=== PATIENT | female | born 1950 | race Caucasian/White ===

== ENCOUNTER 2017-03-14 19:41 | Emergency (ER) | payer MEDICARE ==
[~2017-03-14] VITALS: Ht 121.9 cm; Wt 49.9 kg
--- NOTE | ~2017-03-14 | EKG ---
[place], [place] ELECTROCARDIOGRAM REPORT NAME: SHEREE CRUZ UNIT #: [id number] ROOM: DOCTOR: RUDDY EID MD BIRTHDATE: [birth year] DOS: 03/14/2017 TIME: 2015 hours in the evening. Normal sinus rhythm at rate 78. 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 Leftward axis. Abnormal electrocardiogram. RUDDY EID MD CM:EKGRPT:ELECTROCARDIOGRAM REPORT [id number] RUDDY EID MD
[~2017-03-14 19:41] MED LIST: ASPI-COR81 M1 PO; AUGMENTIN ES-6100 ML PO; CLARITIN10 MG PO; EXFORGE 10 MG-11 TAB PO; OMNICEF300 MG PO; PLAVIX75 MG PO; PROVENTIL0.09 MG/AC IH; SINGULAIR10 MG PO; TRAMADOL HCL50 MG PO
[2017-03-14 19:59] LABS: BASO # 0.1 10*3/uL (0.0-0.1); BASO % 1.2 % (0.0-1.0); EOS # 0.1 10*3/uL (0.0-0.4); HEMATOCRIT 49.6 % (37.0-47.0); HEMOGLOBIN 15.5 g/dl (12.0-16.0); LYMPH # 2.5 10*3/uL (1.3-4.4); LYMPH % 28.6 % (27.0-41.0); MEAN CELL VOLUME 87.8 fl (81.0-99.0); MEAN CORPUSCULAR HGB 27.4 pg (27.0-31.0); MEAN CORPUSCULAR HGB CONC 31.3 g/dl (33.0-37.0); MEAN PLATELET VOLUME 9.3 fl (9.6-12.3); MONO # 0.5 10*3/uL (0.1-1.0); MONO % 5.8 % (3.0-9.0); NEUT # 5.5 10*3/uL (2.3-7.9); NEUT % 63.1 % (47.0-73.0); PLATELET COUNT AUTOMATED 552 10*3/uL (130-400); RED BLOOD COUNT 5.65 10*6/uL (4.10-5.10); RED CELL DISTRI WIDTH 13.2 % (0-14.5); WHITE BLOOD COUNT 8.7 10*3/uL (4.8-10.8)
[2017-03-14 20:16] LABS: BUN 10 mg/dl (7-24); CARBON DIOXIDE 28 mmol/L (21-32); CHLORIDE 106 mmol/L (98-107); EST GLOM FILT AFRICAN AMERICAN > 60 ml/min; GLUCOSE 132 mg/dL (65-99); MAGNESIUM 2.3 mg/dL (1.5-2.1); POTASSIUM 3.5 mmol/L (3.5-5.1); SODIUM 145 mmol/L (136-145)
[2017-03-14 20:19] LABS: TROPONIN I 0.944 ng/ml (<0.045)
[2017-03-14] MEDS ORDERED: NEXIUM 24HR20 MG PO (21:11)
[2017-03-14] MEDS ORDERED: ARICEPT10 M1 PO (21:11)
[2017-03-14] MEDS ORDERED: VITAMIN D-32000 UNIT PO (21:13)
[2017-03-14] MEDS ORDERED: COREG6.25 MG PO (21:14)
[2017-03-14] MEDS ORDERED: NORVASC5 MG PO (21:15)
[2017-03-14] MEDS ORDERED: Transderm Nitr0.6 MG TD (22:20)
[2017-03-14] MEDS ORDERED: NICODERM C21 MG/24 H TD (22:20)
[2017-03-14 23:01] VITALS: BP 140/76
== END 2017-03-15 00:15 | disposition left against medical advice (07) ==
LOC: ED 19:41
PROVIDERS: Student in an Organized Health Care Education/Training Program
DX: I21.3 ST elevation (STEMI) myocardial infarction of unspecified site (principal); Z79.82 Long term (current) use of aspirin; Z79.899 Other long term (current) drug therapy

== ENCOUNTER → 2017-05-27 | Outpatient (CLI) | payer MEDICARE ==
[~2017-05-27] MED LIST changes: +ARICEPT10 M1 PO; +COREG6.25 MG PO; +NEXIUM 24HR20 MG PO; +NICODERM C21 MG/24 H TD; +NORVASC5 MG PO; +Transderm Nitr0.6 MG TD; +VITAMIN D-32000 UNIT PO
[2017-05-27 10:31] LABS: HEMATOCRIT 47.5 % (37.0-47.0); HEMOGLOBIN 14.8 g/dl (12.0-16.0); MEAN CELL VOLUME 89.8 fl (81.0-99.0); MEAN CORPUSCULAR HGB CONC 31.2 g/dl (33.0-37.0); MEAN PLATELET VOLUME 9.7 fl (9.6-12.3); RED BLOOD COUNT 5.29 10*6/uL (4.10-5.10); RED CELL DISTRI WIDTH 14.5 % (0-14.5); WHITE BLOOD COUNT 9.6 10*3/uL (4.8-10.8)
[2017-05-27 10:55] LABS: ALBUMIN 3.5 gm/dl (3.1-4.5); ALKALINE PHOSPHATASE 152 U/L (45-117); BILIRUBIN, TOTAL 0.5 mg/dl (0.2-1.0); BUN 14 mg/dl (7-24); CARBON DIOXIDE 29 mmol/L (21-32); CHLORIDE 107 mmol/L (98-107); CHOLESTEROL 214 mg/dL (<200); CPK 69 U/L (26-192); EST GLOM FILT AFRICAN AMERICAN > 60 ml/min; GLUCOSE 97 mg/dL (65-99); HDL CHOLESTEROL 42 mg/dl (40-60); LDL CHOLESTEROL 141 mg/dL (9-159); POTASSIUM 4.2 mmol/L (3.5-5.1); SGOT/AST 19 IU/L (3-35); SGPT/ALT 24 U/L (12-78); SODIUM 140 mmol/L (136-145); TOTAL PROTEIN 7.8 gm/dL (6.4-8.2); TRIGLYCERIDES 155 mg/dl (<150); VLDL CHOLESTEROL 31 mg/dL (6-40)
[2017-05-27 12:20] LABS: VITAMIN D, 25-HYDROXY 32.4 ng/mL (30-100)
== END | disposition home or self-care (01) ==
LOC: LAB 10:00
PROVIDERS: Family Medicine
DX: I10 Essential (primary) hypertension (principal); E78.00 Pure hypercholesterolemia, unspecified; F41.1 Generalized anxiety disorder; I63.9 Cerebral infarction, unspecified; E55.9 Vitamin D deficiency, unspecified

== ENCOUNTER → 2017-06-08 | Outpatient (CLI) | payer MEDICARE | END | disposition home or self-care (01) | LOC: RAD 09:44 | DX: M54.9 Dorsalgia, unspecified (principal) ==

== ENCOUNTER → 2019-08-02 | Outpatient (CLI) | payer MEDICARE ==
[~2019-08-02] MED LIST changes: +COREG12.5 M1 PO; -COREG6.25 MG PO; +Clopidogrel75 MG PO
[2019-08-02 11:03] LABS: HEMATOCRIT 50.8 % (37.0-47.0); HEMOGLOBIN 15.9 g/dl (12.0-16.0); MEAN CELL VOLUME 91.7 fl (81.0-99.0); MEAN CORPUSCULAR HGB 28.7 pg (27.0-31.0); MEAN CORPUSCULAR HGB CONC 31.3 g/dl (33.0-37.0); MEAN PLATELET VOLUME 10.1 fl (9.6-12.3); RED BLOOD COUNT 5.54 10*6/uL (4.10-5.10); RED CELL DISTRI WIDTH 13.1 % (0-14.5); WHITE BLOOD COUNT 9.4 10*3/uL (4.8-10.8)
[2019-08-02 11:32] LABS: ALBUMIN 4.1 gm/dl (3.1-4.5); ALKALINE PHOSPHATASE 165 U/L (45-117); BUN 16 mg/dl (7-24); CHLORIDE 104 mmol/L (98-107); CHOLESTEROL 200 mg/dL (<200); CREATININE 0.87 mg/dL (0.55-1.02); HDL CHOLESTEROL 39 mg/dl (40-60); LDL CHOLESTEROL 122 mg/dL (9-159); POTASSIUM 4.6 mmol/L (3.5-5.1); SGOT/AST 15 IU/L (3-35); SGPT/ALT 21 U/L (12-78); SODIUM 141 mmol/L (136-145); TOTAL PROTEIN 8.1 gm/dL (6.4-8.2); TRIGLYCERIDES 193 mg/dl (<150); VLDL CHOLESTEROL 39 mg/dL (6-40)
== END | disposition home or self-care (01) ==
LOC: LAB 10:29
PROVIDERS: Nurse Practitioner Family
DX: I10 Essential (primary) hypertension (principal); I25.10 Atherosclerotic heart disease of native coronary artery without angina pectoris; E55.9 Vitamin D deficiency, unspecified; J44.9 Chronic obstructive pulmonary disease, unspecified

== ENCOUNTER 2019-10-05 14:13 | Emergency (ER) | payer MEDICARE ==
[~2019-10-05] VITALS: Ht 149.8 cm; Wt 48.1 kg
[2019-10-05 14:53] LABS: BASO # 0.1 10*3/uL (0.0-0.1); BASO % 1.1 % (0.0-1.0); EOS # 0.1 10*3/uL (0.0-0.4); EOS % 1.3 % (1.0-4.0); HEMATOCRIT 50.8 % (37.0-47.0); HEMOGLOBIN 15.5 g/dl (12.0-16.0); LYMPH # 2.1 10*3/uL (1.3-4.4); LYMPH % 22.1 % (27.0-41.0); MEAN CELL VOLUME 88.8 fl (81.0-99.0); MEAN CORPUSCULAR HGB 27.1 pg (27.0-31.0); MEAN CORPUSCULAR HGB CONC 30.5 g/dl (33.0-37.0); MEAN PLATELET VOLUME 10.1 fl (9.6-12.3); MONO # 0.7 10*3/uL (0.1-1.0); MONO % 7.7 % (3.0-9.0); NEUT # 6.3 10*3/uL (2.3-7.9); NEUT % 67.6 % (47.0-73.0); PLATELET COUNT AUTOMATED 393 10*3/uL (130-400); RED BLOOD COUNT 5.72 10*6/uL (4.10-5.10); RED CELL DISTRI WIDTH 13.5 % (0-14.5); WHITE BLOOD COUNT 9.3 10*3/uL (4.8-10.8)
[2019-10-05 15:09] LABS: ALBUMIN 3.4 gm/dl (3.1-4.5); CREATININE 1.12 mg/dL (0.55-1.02); POTASSIUM 3.8 mmol/L (3.5-5.1); TOTAL PROTEIN 7.6 gm/dL (6.4-8.2)
[2019-10-05 16:20] VITALS: BP 152/95
== END 2019-10-05 17:26 | disposition home or self-care (01) ==
LOC: ED 14:13
PROVIDERS: Physician Assistant
DX: R19.7 Diarrhea, unspecified (principal); I10 Essential (primary) hypertension; J44.9 Chronic obstructive pulmonary disease, unspecified; K21.9 Gastro-esophageal reflux disease without esophagitis; Z88.1 Allergy status to other antibiotic agents; Z88.8 Allergy status to other drugs, medicaments and biological substances; Z79.899 Other long term (current) drug therapy; Z79.82 Long term (current) use of aspirin; Z86.73 Personal history of transient ischemic attack (TIA), and cerebral infarction without residual deficits; Z86.718 Personal history of other venous thrombosis and embolism; Z87.442 Personal history of urinary calculi

== ENCOUNTER → 2020-04-04 | Outpatient (CLI) | payer MEDICARE | END | disposition home or self-care (01) | LOC: RAD 12:40 | DX: M54.5 Low back pain (principal) ==

== ENCOUNTER → 2020-05-23 | Outpatient (CLI) | payer MEDICARE ==
[2020-05-23 12:19] LABS: HEMATOCRIT 49.3 % (37.0-47.0); MEAN CELL VOLUME 90.5 fl (81.0-99.0); MEAN CORPUSCULAR HGB 28.1 pg (27.0-31.0); MEAN PLATELET VOLUME 10.1 fl (9.6-12.3); RED BLOOD COUNT 5.45 10*6/uL (4.10-5.10); RED CELL DISTRI WIDTH 15.9 % (0-14.5)
[2020-05-23 12:47] LABS: ALBUMIN 3.8 gm/dl (3.1-4.5); CREATININE 1.23 mg/dL (0.55-1.02); TOTAL PROTEIN 8.1 gm/dL (6.4-8.2)
[2020-05-23 12:53] LABS: THYROID STIM HORMONE (HS) 1.72 uIU/ml (0.358-4.75)
[2020-05-23 13:07] LABS: VITAMIN D, 25-HYDROXY 32.8 ng/mL (30-100)
== END | disposition home or self-care (01) ==
LOC: LAB 11:54
PROVIDERS: Family Medicine
DX: E78.00 Pure hypercholesterolemia, unspecified (principal); E55.9 Vitamin D deficiency, unspecified; K21.9 Gastro-esophageal reflux disease without esophagitis; R53.83 Other fatigue

== ENCOUNTER → 2020-07-30 | Outpatient (CLI) | payer MEDICARE | END | disposition home or self-care (01) | LOC: RAD 16:08 | PROVIDERS: ATTEND Nurse Practitioner Family | DX: R06.2 Wheezing (principal); M54.5 Low back pain ==

== ENCOUNTER 2020-08-20 18:25 | Emergency (ER) | payer MEDICARE ==
[2020-08-20 19:29] LABS: BASO # 0.1 10*3/uL (0.0-0.1); BASO % 1.1 % (0.0-1.0); EOS % 0.4 % (1.0-4.0); HEMATOCRIT 47.2 % (37.0-47.0); LYMPH # 1.7 10*3/uL (1.3-4.4); LYMPH % 18.4 % (27.0-41.0); MEAN CELL VOLUME 92.7 fl (81.0-99.0); MEAN CORPUSCULAR HGB 28.7 pg (27.0-31.0); MEAN CORPUSCULAR HGB CONC 30.9 g/dl (33.0-37.0); MEAN PLATELET VOLUME 9.7 fl (9.6-12.3); MONO # 0.5 10*3/uL (0.1-1.0); NEUT # 6.9 10*3/uL (2.3-7.9); NEUT % 74.9 % (47.0-73.0); PLATELET COUNT AUTOMATED 416 10*3/uL (130-400); RED BLOOD COUNT 5.09 10*6/uL (4.10-5.10); RED CELL DISTRI WIDTH 13.7 % (0-14.5); WHITE BLOOD COUNT 9.2 10*3/uL (4.8-10.8)
[2020-08-20 19:41] VITALS: BP 136/79
[2020-08-20 19:41] LABS: LIPASE 122 U/L (73-393)
[2020-08-20 19:47] LABS: ALKALINE PHOSPHATASE 114 U/L (45-117); BUN 28 mg/dl (7-24); CHLORIDE 112 mmol/L (98-107); CREATININE 1.09 mg/dL (0.55-1.02); POTASSIUM 4.2 mmol/L (3.5-5.1); SGOT/AST 24 IU/L (3-35); SGPT/ALT 26 U/L (12-78); SODIUM 143 mmol/L (136-145); TOTAL PROTEIN 7.7 gm/dL (6.4-8.2)
[2020-08-20 19:51] LABS: TROPONIN I < 0.015 ng/ml (<0.045)
== END 2020-08-20 21:05 | disposition home or self-care (01) ==
LOC: ED 18:25
PROVIDERS: Emergency Medicine
DX: I10 Essential (primary) hypertension (principal); R79.1 Abnormal coagulation profile; Z79.899 Other long term (current) drug therapy; Z79.82 Long term (current) use of aspirin; Z88.1 Allergy status to other antibiotic agents; Z88.8 Allergy status to other drugs, medicaments and biological substances

== ENCOUNTER 2020-09-19 09:35 | Emergency (ER) | payer MEDICARE ==
[~2020-09-19] VITALS: Wt 90.7 kg
[2020-09-19 09:35] VITALS: BP 177/119
[2020-09-19 10:25] LABS: BASO # 0.1 10*3/uL (0.0-0.1); BASO % 0.9 % (0.0-1.0); EOS # 0.1 10*3/uL (0.0-0.4); EOS % 0.9 % (1.0-4.0); HEMATOCRIT 50.6 % (37.0-47.0); LYMPH # 1.9 10*3/uL (1.3-4.4); LYMPH % 21.9 % (27.0-41.0); MEAN CELL VOLUME 94.2 fl (81.0-99.0); MEAN CORPUSCULAR HGB 28.7 pg (27.0-31.0); MEAN CORPUSCULAR HGB CONC 30.4 g/dl (33.0-37.0); MEAN PLATELET VOLUME 9.7 fl (9.6-12.3); MONO # 0.5 10*3/uL (0.1-1.0); MONO % 5.8 % (3.0-9.0); NEUT # 6.1 10*3/uL (2.3-7.9); NEUT % 70.2 % (47.0-73.0); PLATELET COUNT AUTOMATED 431 10*3/uL (130-400); RED BLOOD COUNT 5.37 10*6/uL (4.10-5.10); RED CELL DISTRI WIDTH 13.2 % (0-14.5); WHITE BLOOD COUNT 8.7 10*3/uL (4.8-10.8)
[2020-09-19 10:36] LABS: INTERNATIONAL NORM RATIO 0.9 (2.0-3.5)
[2020-09-19 10:42] LABS: ALBUMIN 3.9 gm/dl (3.1-4.5); ALKALINE PHOSPHATASE 156 U/L (45-117); BUN 11 mg/dl (7-24); CHLORIDE 110 mmol/L (98-107); CREATININE 0.91 mg/dL (0.55-1.02); POTASSIUM 4.2 mmol/L (3.5-5.1); SGOT/AST 23 IU/L (3-35); SGPT/ALT 23 U/L (12-78); SODIUM 141 mmol/L (136-145); TOTAL PROTEIN 8.4 gm/dL (6.4-8.2)
[2020-09-19 10:45] LABS: TROPONIN I < 0.015 ng/ml (<0.045)
[2020-09-19 12:38] LABS: BILIRUBIN Negative (Negative); BLOOD Negative (Negative); CLARITY Clear (Clear); COLOR Yellow (Yellow); GLUCOSE Negative (Negative); KETONE Negative (Negative); LEUKO ESTERASE 2+ (Negative); NITRITE Negative (Negative); PH 5.5 (4.5-8.0); SPECIFIC GRAVITY 1.015 (1.001-1.030); UROBILINOGEN 0.2 E.U./dl (0.0-1.0)
[2020-09-19 12:56] LABS: BACTERIA 1+; WBC 16-20 wbc/hpf (0-5)
[2020-09-19] MEDS ORDERED: CIPRO500 MG PO (13:26)
== END 2020-09-19 13:35 | disposition home or self-care (01) ==
LOC: ED 09:35
PROVIDERS: Physician Assistant
DX: N39.0 Urinary tract infection, site not specified (principal)

== ENCOUNTER → 2020-10-03 | Outpatient (CLI) | payer MEDICARE ==
[~2020-10-03] MED LIST changes: +CIPRO500 MG PO
== END | disposition home or self-care (01) ==
LOC: RAD 13:06
PROVIDERS: ATTEND Family Medicine
DX: J44.9 Chronic obstructive pulmonary disease, unspecified (principal); I63.9 Cerebral infarction, unspecified; Z87.891 Personal history of nicotine dependence

== ENCOUNTER → 2021-01-01 | Outpatient (CLI) | payer MEDICARE | END | disposition home or self-care (01) | LOC: US 13:30 | PROVIDERS: ATTEND Family Medicine | DX: N32.89 Other specified disorders of bladder (principal); M54.5 Low back pain; Z90.722 Acquired absence of ovaries, bilateral; Z90.710 Acquired absence of both cervix and uterus; Z12.31 Encounter for screening mammogram for malignant neoplasm of breast ==

== ENCOUNTER → 2021-01-04 | Outpatient (CLI) | payer MEDICARE ==
[2021-01-04 13:25] LABS: HEMATOCRIT 43.7 % (37.0-47.0); MEAN CELL VOLUME 98.6 fl (81.0-99.0); MEAN CORPUSCULAR HGB 29.8 pg (27.0-31.0); MEAN CORPUSCULAR HGB CONC 30.2 g/dl (33.0-37.0); MEAN PLATELET VOLUME 10.9 fl (9.6-12.3); RED BLOOD COUNT 4.43 10*6/uL (4.10-5.10); RED CELL DISTRI WIDTH 18.9 % (0-14.5)
[2021-01-04 13:40] LABS: ALBUMIN 3.3 gm/dl (3.1-4.5); ALKALINE PHOSPHATASE 105 U/L (45-117); BUN 18 mg/dl (7-24); CHLORIDE 115 mmol/L (98-107); CHOLESTEROL 119 mg/dL (<200); CREATININE 0.95 mg/dL (0.55-1.02); HDL CHOLESTEROL 39 mg/dl (40-60); LDL CHOLESTEROL 49 mg/dL (9-159); POTASSIUM 3.6 mmol/L (3.5-5.1); SGOT/AST 12 IU/L (3-35); SGPT/ALT 15 U/L (12-78); SODIUM 146 mmol/L (136-145); TRIGLYCERIDES 156 mg/dl (<150); VLDL CHOLESTEROL 31 mg/dL (6-40)
== END | disposition home or self-care (01) ==
LOC: LAB 12:37
PROVIDERS: ATTEND Nurse Practitioner Family
DX: I10 Essential (primary) hypertension (principal); R77.9 Abnormality of plasma protein, unspecified

== ENCOUNTER → 2021-01-08 | Outpatient (CLI) | payer MEDICARE | END | disposition home or self-care (01) | LOC: CT 14:00 → LAB 14:03 | PROVIDERS: ATTEND Nurse Practitioner Family | DX: R10.9 Unspecified abdominal pain (principal); N32.9 Bladder disorder, unspecified; Z90.49 Acquired absence of other specified parts of digestive tract; Z90.722 Acquired absence of ovaries, bilateral; Z90.710 Acquired absence of both cervix and uterus ==

== ENCOUNTER 2021-06-05 17:43 | Inpatient (IN) | payer MEDICARE ==
[~2021-06-05] VITALS: Ht 142.2 cm; Wt 33.2 kg
[2021-06-05 18:00] VITALS: BP 138/63
[2021-06-05 18:11] LABS: BASO # 0.1 10*3/uL (0.0-0.1); BASO % 1.6 % (0.0-1.0); EOS # 0.1 10*3/uL (0.0-0.4); EOS % 1.3 % (1.0-4.0); HEMATOCRIT 41.6 % (37.0-47.0); LYMPH # 2.7 10*3/uL (1.3-4.4); LYMPH % 30.4 % (27.0-41.0); MEAN CORPUSCULAR HGB 29.2 pg (27.0-31.0); MEAN CORPUSCULAR HGB CONC 30.8 g/dl (33.0-37.0); MEAN PLATELET VOLUME 9.9 fl (9.6-12.3); MONO # 0.5 10*3/uL (0.1-1.0); MONO % 5.2 % (3.0-9.0); NEUT # 5.4 10*3/uL (2.3-7.9); NEUT % 60.4 % (47.0-73.0); PLATELET COUNT AUTOMATED 425 10*3/uL (130-400); RED BLOOD COUNT 4.38 10*6/uL (4.10-5.10)
[2021-06-05 18:27] LABS: ALBUMIN 3.4 gm/dl (3.1-4.5); ALKALINE PHOSPHATASE 119 U/L (45-117); BUN 34 mg/dl (7-24); CHLORIDE 112 mmol/L (98-107); CREATININE 1.02 mg/dL (0.55-1.02); POTASSIUM 3.7 mmol/L (3.5-5.1); SGOT/AST 25 IU/L (3-35); SGPT/ALT 21 U/L (12-78); SODIUM 140 mmol/L (136-145); TOTAL PROTEIN 7.1 gm/dL (6.4-8.2)
[2021-06-05 19:34] VITALS: BP 132/64
[2021-06-05 19:42] LABS: BILIRUBIN Negative (Negative); BLOOD Negative (Negative); CLARITY Clear (Clear); COLOR Yellow (Yellow); GLUCOSE Negative (Negative); KETONE Trace (Negative); LEUKO ESTERASE Negative (Negative); NITRITE Negative (Negative); UROBILINOGEN 0.2 E.U./dl (0.0-1.0)
[2021-06-05 19:53] LABS: BACTERIA TRACE; WBC 0-2 wbc/hpf (0-5)
[2021-06-05 20:43] LABS: URINE AMPHETAMINES < 1000 (1000ng/ml); URINE BARBITURATES < 200 (200ng/ml); URINE BENZODIAZEPINES < 200 (200ng/ml); URINE CANNABINOIDS (THC) < 50 (50ng/ml); URINE COCAINE < 300 (300ng/ml); URINE METHADONE < 300 (300ng/ml); URINE OPIATES < 300 (300ng/ml)
[2021-06-05 20:46] LABS: URINE PHENCYCLIDINE < 25 (25ng/ml)
[2021-06-05 22:13] VITALS: BP 119/60
[2021-06-05 23:55] VITALS: BP 149/50
[2021-06-06 08:00] VITALS: BP 161/73
[2021-06-06] MEDS ORDERED: COREG25 MG PO (09:18)
[2021-06-06] MEDS ORDERED: GABAPENTIN400 MG PO (09:20)
[2021-06-06] MEDS ORDERED: REMERON15 M2 PO (09:20)
[2021-06-06 12:10] VITALS: BP 101/47
[2021-06-06 13:23] VITALS: BP 119/59
[2021-06-06 16:00] VITALS: BP 107/57
[2021-06-06 20:00] VITALS: BP 149/72
[2021-06-07] VITALS: BP 123/44
[2021-06-07 04:00] VITALS: BP 164/89
[2021-06-07 08:00] VITALS: BP 159/50
[2021-06-07 12:00] VITALS: BP 128/41
[2021-06-07 13:04] LABS: BASO # 0.1 10*3/uL (0.0-0.1); EOS # 0.1 10*3/uL (0.0-0.4); EOS % 1.4 % (1.0-4.0); LYMPH # 2.3 10*3/uL (1.3-4.4); LYMPH % 29.6 % (27.0-41.0); MEAN CELL VOLUME 97.9 fl (81.0-99.0); MEAN CORPUSCULAR HGB 28.9 pg (27.0-31.0); MEAN CORPUSCULAR HGB CONC 29.5 g/dl (33.0-37.0); MEAN PLATELET VOLUME 9.7 fl (9.6-12.3); MONO # 0.8 10*3/uL (0.1-1.0); MONO % 9.5 % (3.0-9.0); NEUT # 4.6 10*3/uL (2.3-7.9); NEUT % 58.1 % (47.0-73.0); PLATELET COUNT AUTOMATED 346 10*3/uL (130-400); RED BLOOD COUNT 3.88 10*6/uL (4.10-5.10); RED CELL DISTRI WIDTH 14.7 % (0-14.5); WHITE BLOOD COUNT 7.9 10*3/uL (4.8-10.8)
[2021-06-07 13:18] LABS: ACT PARTIAL THROMBO TIME 25.9 SECONDS (20.0-32.1)
[2021-06-07 16:00] VITALS: BP 124/52
[2021-06-07 20:00] VITALS: BP 104/58
[2021-06-07 20:21] LABS: ALBUMIN 3.1 gm/dl (3.1-4.5); ALKALINE PHOSPHATASE 110 U/L (45-117); BUN 26 mg/dl (7-24); CHLORIDE 110 mmol/L (98-107); CREATININE 0.96 mg/dL (0.55-1.02); POTASSIUM 3.5 mmol/L (3.5-5.1); SGOT/AST 23 IU/L (3-35); SGPT/ALT 22 U/L (12-78); SODIUM 139 mmol/L (136-145); TOTAL PROTEIN 6.3 gm/dL (6.4-8.2)
[2021-06-08] VITALS: BP 161/80
[2021-06-08 04:00] VITALS: BP 150/70
[2021-06-08 08:00] VITALS: BP 150/80
[2021-06-08 16:00] VITALS: BP 141/64
[2021-06-08 20:00] VITALS: BP 140/70
[2021-06-09] VITALS: BP 140/80
[2021-06-09 04:00] VITALS: BP 150/80
[2021-06-09 08:00] VITALS: BP 160/80
[2021-06-09 12:00] VITALS: BP 147/48
[2021-06-09 16:00] VITALS: BP 114/94
[2021-06-09 20:00] VITALS: BP 143/53
[2021-06-10] VITALS: BP 132/66
[2021-06-10 06:38] LABS: BASO # 0.1 10*3/uL (0.0-0.1); BASO % 0.7 % (0.0-1.0); EOS # 0.2 10*3/uL (0.0-0.4); EOS % 2.1 % (1.0-4.0); HEMATOCRIT 39.2 % (37.0-47.0); LYMPH % 26.3 % (27.0-41.0); MEAN CELL VOLUME 96.8 fl (81.0-99.0); MEAN CORPUSCULAR HGB 28.6 pg (27.0-31.0); MEAN CORPUSCULAR HGB CONC 29.6 g/dl (33.0-37.0); MEAN PLATELET VOLUME 10.4 fl (9.6-12.3); MONO # 0.5 10*3/uL (0.1-1.0); NEUT # 4.8 10*3/uL (2.3-7.9); NEUT % 63.4 % (47.0-73.0); PLATELET COUNT AUTOMATED 388 10*3/uL (130-400); RED BLOOD COUNT 4.05 10*6/uL (4.10-5.10); RED CELL DISTRI WIDTH 14.1 % (0-14.5); WHITE BLOOD COUNT 7.5 10*3/uL (4.8-10.8)
[2021-06-10 08:00] VITALS: BP 175/72
[2021-06-10] MEDS ORDERED: ELIQUIS5 M1 PO (11:23)
== END 2021-06-10 18:00 | disposition home or self-care (01) | DRG 62 ==
LOC: ED 17:43 → ICCU 22:39 → EDHOLD 22:39 → 4E 22:53 → ICCU 06-06 13:22
PROVIDERS: Internal Medicine; Student in an Organized Health Care Education/Training Program; Surgery Vascular Surgery; ADMIT Internal Medicine; ATTEND Internal Medicine
DX: I63.232 Cerebral infarction due to unspecified occlusion or stenosis of left carotid arteries (principal); F33.1 Major depressive disorder, recurrent, moderate; E16.2 Hypoglycemia, unspecified; I63.231 Cerebral infarction due to unspecified occlusion or stenosis of right carotid arteries; J43.2 Centrilobular emphysema; K21.00 Gastro-esophageal reflux disease with esophagitis, without bleeding; I10 Essential (primary) hypertension; F02.80 Dementia in other diseases classified elsewhere, unspecified severity, without behavioral disturbance, psychotic disturbance, mood disturbance, and anxiety; G30.1 Alzheimer's disease with late onset; G83.24 Monoplegia of upper limb affecting left nondominant side; E78.2 Mixed hyperlipidemia; R26.2 Difficulty in walking, not elsewhere classified; Z20.822 Contact with and (suspected) exposure to COVID-19; G89.29 Other chronic pain; M54.5 Low back pain; Z87.11 Personal history of peptic ulcer disease; Z88.1 Allergy status to other antibiotic agents; Z88.8 Allergy status to other drugs, medicaments and biological substances; Z83.3 Family history of diabetes mellitus; Z79.899 Other long term (current) drug therapy; Z90.710 Acquired absence of both cervix and uterus

== ENCOUNTER 2021-08-26 15:01 | Emergency (ER) | payer MEDICARE ==
[~2021-08-26 15:01] MED LIST changes: +COREG25 MG PO; +ELIQUIS5 M1 PO; +GABAPENTIN400 MG PO; +REMERON15 M2 PO
== END 2021-08-26 18:15 | disposition left against medical advice (07) ==
LOC: ED 15:01
DX: M54.9 Dorsalgia, unspecified (principal); R63.0 Anorexia; Z53.21 Procedure and treatment not carried out due to patient leaving prior to being seen by health care provider

== ENCOUNTER 2021-08-26 19:56 | Emergency (ER) | payer MEDICARE ==
[~2021-08-26] VITALS: Wt 45.4 kg
[2021-08-26 20:00] VITALS: BP 143/90
[2021-08-29] MEDS ORDERED: HYDRALAZINE10 MG PO ×2 (12:20→12:25)
[2021-08-29] MEDS ORDERED: NORVASC5 MG PO ×3 (12:23→20:28)
[2021-08-29] MEDS ORDERED: APRESOLINE10 MG PO (20:28)
[2021-08-29] MEDS ORDERED: ARICEPT10 M1 PO (20:29)
[2021-08-29] MEDS ORDERED: REMERON15 M2 PO (20:29)
== END 2021-08-26 20:25 | disposition left against medical advice (07) ==
LOC: ED 19:56
DX: M54.9 Dorsalgia, unspecified (principal); Z53.21 Procedure and treatment not carried out due to patient leaving prior to being seen by health care provider

== ENCOUNTER 2021-09-02 17:52 | Emergency (ER) | payer MEDICARE ==
[~2021-09-02] VITALS: Ht 139.7 cm; Wt 40.8 kg
[~2021-09-02 17:52] MED LIST changes: +APRESOLINE10 MG PO; +ASPIRIN ADULT L81 M1 PO; +HYDRALAZINE HYD50 MG PO; +HYDRALAZINE10 MG PO; +LABETALOL HCL100 MG PO; +NAMENDA-5 PO; +NEXIUM 24HR20 M2 PO; +PLAVIX75 M1 PO
[2021-09-02 18:45] VITALS: BP 170/110
[2021-09-02 19:01] LABS: BASO # 0.1 10*3/uL (0.0-0.1); BASO % 1.2 % (0.0-1.0); EOS # 0.1 10*3/uL (0.0-0.4); EOS % 1.1 % (1.0-4.0); HEMATOCRIT 33.2 % (37.0-47.0); LYMPH % 22.9 % (27.0-41.0); MEAN CELL VOLUME 92.7 fl (81.0-99.0); MEAN CORPUSCULAR HGB 27.7 pg (27.0-31.0); MEAN CORPUSCULAR HGB CONC 29.8 g/dl (33.0-37.0); MEAN PLATELET VOLUME 9.4 fl (9.6-12.3); MONO # 0.9 10*3/uL (0.1-1.0); MONO % 10.5 % (3.0-9.0); NEUT # 5.7 10*3/uL (2.3-7.9); NEUT % 63.6 % (47.0-73.0); PLATELET COUNT AUTOMATED 633 10*3/uL (130-400); RED BLOOD COUNT 3.58 10*6/uL (4.10-5.10); RED CELL DISTRI WIDTH 16.1 % (0-14.5); WHITE BLOOD COUNT 8.9 10*3/uL (4.8-10.8)
[2021-09-02 19:13] LABS: ACT PARTIAL THROMBO TIME 26.3 SECONDS (20.0-32.1); INTERNATIONAL NORM RATIO 0.9 (2.0-3.5)
[2021-09-02 19:21] LABS: ALBUMIN 2.8 gm/dl (3.1-4.5); ALKALINE PHOSPHATASE 123 U/L (45-117); BUN 19 mg/dl (7-24); CHLORIDE 110 mmol/L (98-107); CREATININE 0.93 mg/dL (0.55-1.02); POTASSIUM 3.6 mmol/L (3.5-5.1); SGOT/AST 36 IU/L (3-35); SGPT/ALT 24 U/L (12-78); SODIUM 144 mmol/L (136-145); TOTAL PROTEIN 7.4 gm/dL (6.4-8.2); TROPONIN I < 0.015 ng/ml (<0.045)
== END 2021-09-02 21:24 | disposition left against medical advice (07) ==
LOC: ED 17:52
PROVIDERS: Emergency Medicine
DX: M54.6 Pain in thoracic spine (principal); Z86.16 Personal history of COVID-19; Z88.1 Allergy status to other antibiotic agents; Z79.899 Other long term (current) drug therapy; Z79.82 Long term (current) use of aspirin

== ENCOUNTER 2021-09-04 00:34 | Emergency (ER) | payer MEDICARE ==
[~2021-09-04] VITALS: Ht 162.5 cm; Wt 49.9 kg
[2021-09-04 00:36] VITALS: BP 112/49
[2021-09-04 00:59] LABS: BASO # 0.1 10*3/uL (0.0-0.1); BASO % 1.2 % (0.0-1.0); EOS # 0.1 10*3/uL (0.0-0.4); EOS % 1.1 % (1.0-4.0); HEMATOCRIT 31.3 % (37.0-47.0); LYMPH # 1.7 10*3/uL (1.3-4.4); LYMPH % 17.4 % (27.0-41.0); MEAN CORPUSCULAR HGB 27.3 pg (27.0-31.0); MEAN CORPUSCULAR HGB CONC 29.1 g/dl (33.0-37.0); MEAN PLATELET VOLUME 9.9 fl (9.6-12.3); MONO % 10.3 % (3.0-9.0); NEUT # 6.9 10*3/uL (2.3-7.9); NEUT % 69.1 % (47.0-73.0); PLATELET COUNT AUTOMATED 517 10*3/uL (130-400); RED BLOOD COUNT 3.33 10*6/uL (4.10-5.10); RED CELL DISTRI WIDTH 16.1 % (0-14.5)
[2021-09-04 01:18] LABS: ALBUMIN 2.5 gm/dl (3.1-4.5); ALKALINE PHOSPHATASE 114 U/L (45-117); BUN 19 mg/dl (7-24); CHLORIDE 111 mmol/L (98-107); POTASSIUM 4.2 mmol/L (3.5-5.1); SGOT/AST 30 IU/L (3-35); SGPT/ALT 22 U/L (12-78); SODIUM 141 mmol/L (136-145); TOTAL PROTEIN 6.8 gm/dL (6.4-8.2)
[2021-09-04 03:23] LABS: BILIRUBIN 2+ (Negative); BLOOD Negative (Negative); CLARITY Cloudy (Clear); COLOR Dark Yellow (Yellow); GLUCOSE Negative (Negative); KETONE Trace (Negative); LEUKO ESTERASE 1+ (Negative); NITRITE Negative (Negative); SPECIFIC GRAVITY >= 1.030 (1.001-1.030)
[2021-09-04 03:43] LABS: BACTERIA TRACE; HYALINE CAST 16-20
[2021-09-04] MEDS ORDERED: SEPTDS PO (03:52)
== END 2021-09-04 06:14 | disposition home or self-care (01) ==
LOC: ED 00:34
PROVIDERS: Internal Medicine
DX: N39.0 Urinary tract infection, site not specified (principal); E88.09 Other disorders of plasma-protein metabolism, not elsewhere classified; D64.9 Anemia, unspecified; Z88.1 Allergy status to other antibiotic agents; Z79.899 Other long term (current) drug therapy; Z79.82 Long term (current) use of aspirin

== ENCOUNTER 2021-10-23 14:11 | Inpatient (IN) | payer MEDICARE ==
[~2021-10-23] VITALS: Ht 127 cm; Wt 39.1 kg
[~2021-10-23 14:11] MED LIST changes: +SEPTDS PO
[2021-10-23 14:49] VITALS: BP 165/110
[2021-10-23 19:23] VITALS: BP 188/100
[2021-10-23 20:00] VITALS: BP 190/90
[2021-10-23 20:33] LABS: BASO # 0.1 10*3/uL (0.0-0.1); BASO % 0.9 % (0.0-1.0); EOS # 0.1 10*3/uL (0.0-0.4); EOS % 1.7 % (1.0-4.0); LYMPH # 1.3 10*3/uL (1.3-4.4); LYMPH % 15.6 % (27.0-41.0); MEAN CELL VOLUME 86.6 fl (81.0-99.0); MEAN CORPUSCULAR HGB 24.9 pg (27.0-31.0); MEAN CORPUSCULAR HGB CONC 28.8 g/dl (33.0-37.0); MONO # 0.7 10*3/uL (0.1-1.0); NEUT # 5.9 10*3/uL (2.3-7.9); NEUT % 72.6 % (47.0-73.0); PLATELET COUNT AUTOMATED 315 10*3/uL (130-400); RED BLOOD COUNT 4.85 10*6/uL (4.10-5.10); RED CELL DISTRI WIDTH 14.7 % (0-14.5); WHITE BLOOD COUNT 8.1 10*3/uL (4.8-10.8)
[2021-10-23 20:44] LABS: ACT PARTIAL THROMBO TIME 25.6 SECONDS (20.0-32.1)
[2021-10-23 20:51] LABS: ALBUMIN 3.4 gm/dl (3.1-4.5); CREATININE 1.13 mg/dL (0.55-1.02); POTASSIUM 4.2 mmol/L (3.5-5.1); TOTAL PROTEIN 7.7 gm/dL (6.4-8.2)
[2021-10-23 21:30] VITALS: BP 164/80
[2021-10-24 00:08] VITALS: BP 134/96
[2021-10-24 03:12] LABS: BILIRUBIN Negative (Negative); BLOOD Negative (Negative); CLARITY Clear (Clear); COLOR Yellow (Yellow); GLUCOSE Negative (Negative); KETONE Negative (Negative); LEUKO ESTERASE Negative (Negative); NITRITE Negative (Negative); UROBILINOGEN 0.2 E.U./dl (0.0-1.0)
[2021-10-24 03:36] LABS: WBC 0-2 wbc/hpf (0-5)
[2021-10-24 05:11] VITALS: BP 136/58
[2021-10-24 08:33] VITALS: BP 152/76
[2021-10-24 12:00] VITALS: BP 152/76
[2021-10-24 16:00] VITALS: BP 179/50
[2021-10-24 18:19] VITALS: BP 151/52
[2021-10-25 01:14] VITALS: BP 145/47
[2021-10-25 02:00] VITALS: BP 158/52
[2021-10-25 06:31] LABS: BASO # 0.1 10*3/uL (0.0-0.1); BASO % 0.7 % (0.0-1.0); EOS # 0.1 10*3/uL (0.0-0.4); EOS % 0.9 % (1.0-4.0); HEMATOCRIT 37.5 % (37.0-47.0); LYMPH # 0.8 10*3/uL (1.3-4.4); LYMPH % 8.7 % (27.0-41.0); MEAN CORPUSCULAR HGB 25.2 pg (27.0-31.0); MEAN CORPUSCULAR HGB CONC 29.6 g/dl (33.0-37.0); MEAN PLATELET VOLUME 10.1 fl (9.6-12.3); MONO # 0.4 10*3/uL (0.1-1.0); MONO % 4.5 % (3.0-9.0); NEUT # 7.6 10*3/uL (2.3-7.9); PLATELET COUNT AUTOMATED 309 10*3/uL (130-400); RED BLOOD COUNT 4.41 10*6/uL (4.10-5.10); RED CELL DISTRI WIDTH 14.9 % (0-14.5)
[2021-10-25 06:42] LABS: BUN 24 mg/dl (7-24); CHLORIDE 111 mmol/L (98-107); CREATININE 0.85 mg/dL (0.55-1.02); SODIUM 140 mmol/L (136-145)
[2021-10-25 08:00] VITALS: BP 152/60
[2021-10-25 12:00] VITALS: BP 142/60
[2021-10-25 20:00] VITALS: BP 122/62
[2021-10-26] VITALS: BP 99/56
[2021-10-26 08:00] VITALS: BP 125/83
[2021-10-26 12:00] VITALS: BP 156/50
[2021-10-26 16:00] VITALS: BP 140/80
[2021-10-27 00:49] VITALS: BP 136/78
[2021-10-27 08:00] VITALS: BP 151/50
[2021-10-27 12:00] VITALS: BP 162/54
[2021-10-27 16:00] VITALS: BP 130/52
[2021-10-27 20:00] VITALS: BP 81/48
[2021-10-28] VITALS: BP 83/48
[2021-10-28 04:00] VITALS: BP 170/70
[2021-10-28 08:00] VITALS: BP 164/68
[2021-10-28 12:00] VITALS: BP 134/94
[2021-10-28] MEDS ORDERED: DIVALPROEX SOD125 MG PO (12:00)
[2021-10-28] MEDS ORDERED: BUSPIRONE HCL10 MG PO (12:00)
== END 2021-10-28 16:26 | DRG 683 ==
LOC: ED 14:11 → EDHOLD 10-24 00:35 → 4E 10-24 00:35 → EDHOLD 10-24 03:48 → 4E 10-25 01:43
PROVIDERS: Physician Assistant; ADMIT Internal Medicine; ATTEND Internal Medicine
DX: N17.0 Acute kidney failure with tubular necrosis (principal); F02.81 Dementia in other diseases classified elsewhere, unspecified severity, with behavioral disturbance; F33.1 Major depressive disorder, recurrent, moderate; E78.2 Mixed hyperlipidemia; R62.7 Adult failure to thrive; G30.1 Alzheimer's disease with late onset; K21.00 Gastro-esophageal reflux disease with esophagitis, without bleeding; G89.29 Other chronic pain; M54.9 Dorsalgia, unspecified; Z20.822 Contact with and (suspected) exposure to COVID-19; J43.2 Centrilobular emphysema; I10 Essential (primary) hypertension; F41.1 Generalized anxiety disorder; N18.31 Chronic kidney disease, stage 3a; Z88.8 Allergy status to other drugs, medicaments and biological substances; Z86.73 Personal history of transient ischemic attack (TIA), and cerebral infarction without residual deficits; Z88.1 Allergy status to other antibiotic agents; Z90.710 Acquired absence of both cervix and uterus; Z68.24 Body mass index [BMI] 24.0-24.9, adult

== ENCOUNTER 2022-01-13 01:47 | Emergency (ER) | payer MEDICARE ==
[~2022-01-13] VITALS: Ht 154.9 cm; Wt 61.2 kg
[~2022-01-13 01:47] MED LIST changes: +BUSPIRONE HCL10 MG PO; +DIVALPROEX SOD125 MG PO
[2022-01-13 03:45] LABS: BASO # 0.1 10*3/uL (0.0-0.1); BASO % 0.7 % (0.0-1.0); EOS # 0.1 10*3/uL (0.0-0.4); EOS % 0.6 % (1.0-4.0); HEMATOCRIT 38.8 % (37.0-47.0); LYMPH # 1.1 10*3/uL (1.3-4.4); LYMPH % 11.3 % (27.0-41.0); MEAN CELL VOLUME 83.8 fl (81.0-99.0); MEAN CORPUSCULAR HGB 25.3 pg (27.0-31.0); MEAN CORPUSCULAR HGB CONC 30.2 g/dl (33.0-37.0); MEAN PLATELET VOLUME 9.5 fl (9.6-12.3); MONO # 0.3 10*3/uL (0.1-1.0); MONO % 3.1 % (3.0-9.0); NEUT # 7.9 10*3/uL (2.3-7.9); NEUT % 83.7 % (47.0-73.0); PLATELET COUNT AUTOMATED 298 10*3/uL (130-400); RED BLOOD COUNT 4.63 10*6/uL (4.10-5.10); RED CELL DISTRI WIDTH 23.6 % (0-14.5); WHITE BLOOD COUNT 9.5 10*3/uL (4.8-10.8)
[2022-01-13 04:13] LABS: ALKALINE PHOSPHATASE 100 U/L (45-117); BUN 25 mg/dl (7-24); CHLORIDE 108 mmol/L (98-107); CREATININE 0.87 mg/dL (0.55-1.02); LIPASE 102 U/L (73-393); POTASSIUM 3.7 mmol/L (3.5-5.1); SGOT/AST 20 IU/L (3-35); SGPT/ALT 21 U/L (12-78); SODIUM 140 mmol/L (136-145); TOTAL PROTEIN 7.8 gm/dL (6.4-8.2)
[2022-01-13 06:39] VITALS: BP 147/64
== END 2022-01-13 06:39 ==
LOC: ED 01:47
PROVIDERS: Emergency Medicine
DX: I10 Essential (primary) hypertension (principal); R10.9 Unspecified abdominal pain; R11.10 Vomiting, unspecified; R19.7 Diarrhea, unspecified; I25.10 Atherosclerotic heart disease of native coronary artery without angina pectoris; I25.2 Old myocardial infarction; E11.9 Type 2 diabetes mellitus without complications; G30.9 Alzheimer's disease, unspecified; F02.80 Dementia in other diseases classified elsewhere, unspecified severity, without behavioral disturbance, psychotic disturbance, mood disturbance, and anxiety; Z88.8 Allergy status to other drugs, medicaments and biological substances; Z88.1 Allergy status to other antibiotic agents; Z79.899 Other long term (current) drug therapy; Z79.82 Long term (current) use of aspirin; Z90.710 Acquired absence of both cervix and uterus; Z90.89 Acquired absence of other organs; Z90.49 Acquired absence of other specified parts of digestive tract

== ENCOUNTER 2022-12-15 04:41 | Emergency (ER) | payer OTHER ==
[~2022-12-15] VITALS: Wt 35.8 kg
[2022-12-15 05:57] LABS: BILIRUBIN Negative (Negative); BLOOD Negative (Negative); CLARITY Clear (Clear); COLOR Yellow (Yellow); GLUCOSE Negative (Negative); KETONE Negative (Negative); LEUKO ESTERASE Trace (Negative); NITRITE Negative (Negative); PH 7.5 (4.5-8.0); SPECIFIC GRAVITY 1.015 (1.001-1.030); UROBILINOGEN 0.2 E.U./dl (0.0-1.0)
[2022-12-15 05:58] LABS: HEMATOCRIT 35.3 % (37.0-47.0); MEAN CELL VOLUME 94.6 fl (81.0-99.0); MEAN CORPUSCULAR HGB CONC 30.6 g/dl (33.0-37.0); MEAN PLATELET VOLUME 10.1 fl (9.6-12.3); PLATELET COUNT AUTOMATED 532 10*3/uL (130-400); RED BLOOD COUNT 3.73 10*6/uL (4.10-5.10); RED CELL DISTRI WIDTH 16.8 % (0-14.5); WHITE BLOOD COUNT 12.1 10*3/uL (4.8-10.8)
[2022-12-15 06:02] LABS: MANUAL DIFF REFLEX YES
[2022-12-15 06:08] LABS: ALKALINE PHOSPHATASE 106 U/L (46-116); BUN 10 mg/dl (9-23); CHLORIDE 105 mmol/L (98-107); CPK 77 U/L (34-171); POTASSIUM 4.2 mmol/L (3.4-5.1); SGPT/ALT 10 U/L (10-49); TOTAL PROTEIN 6.8 gm/dL (6.0-8.0)
[2022-12-15 06:36] LABS: BACTERIA TRACE; RBC 0-2 rbc/hpf (0-2)
[2022-12-15 06:54] LABS: BASOPHILS 2 % (0-1); PLATELET SUFFICIENCY HIGH (NORMAL); POLYCHROMASIA SLIGHT; TOTAL CELLS COUNTED 100 #CELLS
[2022-12-15 06:55] LABS: OVALOCYTES FEW
[2022-12-15 08:30] VITALS: BP 120/87
== END 2022-12-15 10:21 ==
LOC: ED 04:41
PROVIDERS: Emergency Medicine
DX: T50.901A Poisoning by unspecified drugs, medicaments and biological substances, accidental (unintentional), initial encounter (principal); Z90.710 Acquired absence of both cervix and uterus; Z88.1 Allergy status to other antibiotic agents; Z88.8 Allergy status to other drugs, medicaments and biological substances; Z79.899 Other long term (current) drug therapy; Z79.82 Long term (current) use of aspirin; Z90.49 Acquired absence of other specified parts of digestive tract; Y92.89 Other specified places as the place of occurrence of the external cause

== ENCOUNTER 2024-12-11 17:42 | Emergency (ER) | payer OTHER ==
[~2024-12-11] VITALS: Ht 157.4 cm; Wt 40.8 kg
[2024-12-11] MEDS ORDERED: SODIUM CHLORIDE 0.9% 1,000 ML IV ONE (17:50)
[2024-12-11 17:57] VITALS: BP 150/65
[2024-12-11 18:28] LABS: BASO # 0.1 10*3/uL (0.0-0.1); BASO % 1.8 % (0.0-1.0); EOS # 0.1 10*3/uL (0.0-0.4); EOS % 1.6 % (1.0-4.0); HEMATOCRIT 36.2 % (37.0-47.0); MEAN CELL VOLUME 80.6 fl (81.0-99.0); MEAN CORPUSCULAR HGB 23.2 pg (27.0-31.0); MEAN CORPUSCULAR HGB CONC 28.7 g/dl (33.0-37.0); MEAN PLATELET VOLUME 9.2 fl (9.6-12.3); MONO # 0.4 10*3/uL (0.1-1.0); MONO % 7.8 % (3.0-9.0); NEUT # 3.3 10*3/uL (2.3-7.9); NEUT % 57.8 % (47.0-73.0); PLATELET COUNT AUTOMATED 413 10*3/uL (130-400); RED BLOOD COUNT 4.49 10*6/uL (4.10-5.10); WHITE BLOOD COUNT 5.6 10*3/uL (4.8-10.8)
[2024-12-11 18:48] LABS: POTASSIUM 4.5 mmol/L (3.4-5.1)
[2024-12-11 19:12] LABS: BILIRUBIN Negative (Negative); BLOOD Negative (Negative); CLARITY Clear (Clear); COLOR Yellow (Yellow); GLUCOSE Negative (Negative); KETONE Trace (Negative); LEUKO ESTERASE Negative (Negative); NITRITE Negative (Negative); PH 5.5 (4.5-8.0); SPECIFIC GRAVITY 1.025 (1.001-1.030)
[2024-12-11 19:22] LABS: HYALINE CAST 0-2; RBC 0-2 rbc/hpf (0-2)
[2024-12-11] MEDS ORDERED: Acetaminophen/Hydrocodone 5 MG/325 MG TABLET PO ONE (21:30)
== END 2024-12-11 22:58 ==
LOC: ED 17:42
PROVIDERS: Emergency Medicine
DX: F03.90 Unspecified dementia, unspecified severity, without behavioral disturbance, psychotic disturbance, mood disturbance, and anxiety (principal); N17.9 Acute kidney failure, unspecified; E83.52 Hypercalcemia; D64.9 Anemia, unspecified; E78.5 Hyperlipidemia, unspecified; I12.9 Hypertensive chronic kidney disease with stage 1 through stage 4 chronic kidney disease, or unspecified chronic kidney disease; E11.22 Type 2 diabetes mellitus with diabetic chronic kidney disease; N18.9 Chronic kidney disease, unspecified; Z88.1 Allergy status to other antibiotic agents; Z79.899 Other long term (current) drug therapy; Z79.82 Long term (current) use of aspirin; Z90.710 Acquired absence of both cervix and uterus; Z90.49 Acquired absence of other specified parts of digestive tract; Z86.73 Personal history of transient ischemic attack (TIA), and cerebral infarction without residual deficits

== ENCOUNTER 2025-07-11 07:23 | Emergency (ER) | payer OTHER ==
[2025-07-11 07:29] VITALS: BP 96/53
[2025-07-11] MEDS ORDERED: Acetaminophen/Oxycodone 5 MG/325 MG TABLET PO ONE (07:45)
[2025-07-11] MEDS ORDERED: Tdap Vaccine 0.5 ML SYR (Adult Vaccine) IM ONE (07:45)
== END 2025-07-11 09:20 | disposition home or self-care (01) ==
LOC: ED 07:23
DX: S01.01XA Laceration without foreign body of scalp, initial encounter (principal); F03.90 Unspecified dementia, unspecified severity, without behavioral disturbance, psychotic disturbance, mood disturbance, and anxiety; Z88.8 Allergy status to other drugs, medicaments and biological substances; Z88.1 Allergy status to other antibiotic agents; Z79.899 Other long term (current) drug therapy; Z79.82 Long term (current) use of aspirin; Z90.49 Acquired absence of other specified parts of digestive tract; Z90.710 Acquired absence of both cervix and uterus; W18.39XA Other fall on same level, initial encounter; Y93.89 Activity, other specified; Y92.89 Other specified places as the place of occurrence of the external cause; Y99.8 Other external cause status